=== PATIENT | female | born 1985 | race Two or more races ===

== ENCOUNTER 2019-03-10 16:18 | Emergency (ER) | payer SELFPAY ==
[~2019-03-10] VITALS: Ht 152.4 cm; Wt 80.0 kg
[2019-03-10] MEDS ORDERED: SODIUM CHLORIDE 0.9% 1,000 ML IV ONE (17:20)
[2019-03-10] MEDS ORDERED: LEVETIRACETAM 1000MG/100ML 100 ML IV ONE (17:30)
[2019-03-10] MEDS ORDERED: ZONISAMIDE 100MG CAPSULE PO ONE (17:30)
[2019-03-10 17:58] LABS: CLARITY URINE CLOUDY (CLEAR); COLOR URINE ORANGE (YELLOW); KETONES URINE NEGATIVE (NEGATIVE); LEUKOCYTE ESTERASE URINE NEGATIVE (NEGATIVE); NITRITE URINE NEGATIVE (NEGATIVE); OCCULT BLOOD URINE 3+ (NEGATIVE); PROTEIN URINE NEGATIVE (NEGATIVE); SPECIFIC GRAVITY URINE 1.006 (1.005-1.030); UROBILINOGEN URINE 0.2 E.U./dL (0.2-1.0)
[2019-03-10] MEDS ORDERED: NEOMY SULF/BACITRAC ZN/POLY OINT 28GM TOP STA (17:58)
[2019-03-10 17:59] LABS: BASOPHILS % 0.2 % (0.0-2.0); CHLORIDE 110 mEq/L (98-107); EOSINOPHILS % 0.1 % (0.0-5.0); HEMATOCRIT. 37.3 % (36.0-48.0); HEMOGLOBIN. 12.2 g/dL (12.0-16.0); LYMPHOCYTES % 8.1 % (20.0-50.0); MEAN CORPUSCULAR HEMOGLOBIN 27.9 pg (28.0-32.0); MEAN CORPUSCULAR VOLUME 85.5 fL (81.0-99.0); MEAN PLATELET VOLUME 10.9 fl (7.4-10.4); MONOCYTES % 3.3 % (2.0-8.0); NEUTROPHILS % 88.3 % (40.0-76.0); PLATELET 189 x1000/uL (130-400); RED BLOOD CELL COUNT 4.36 mill/uL (4.2-5.4); RED CELL DISTRIBUTION WIDTH 16.1 % (11.6-14.6)
[2019-03-10 18:03] LABS: ETHANOL BLOOD < 10 mg/dL
[2019-03-10 18:12] LABS: *AMPHETAMINES SCREEN URINE NEGATIVE (NEGATIVE); *BARBITURATES SCREEN URINE NEGATIVE (NEGATIVE); *BENZODIAZEPINES SCREEN URINE NEGATIVE (NEGATIVE); *COCAINE SCREEN URINE NEGATIVE (NEGATIVE); METHADONE URINE SCREEN NEGATIVE (NEGATIVE); OPIATES URINE SCREEN NEGATIVE (NEGATIVE)
[2019-03-10 18:13] LABS: CANNABINOID URINE SCREEN NEGATIVE (NEGATIVE); PHENCYCLIDINE URINE SCREEN NEGATIVE (NEGATIVE)
[2019-03-10 21:08] VITALS: BP 103/65
== END 2019-03-10 21:09 | disposition home or self-care (01) ==
LOC: ER 18:56
DX: G40.909 Epilepsy, unspecified, not intractable, without status epilepticus (principal)
CPT/HCPCS: 36415; 70450; 80053; 80305; 80320; 81003; 81025; 85025; 96365; 99284; J1953; J7030; G0480